=== PATIENT | male | born 1980 ===

== ENCOUNTER 2016-05-05 12:05 | Emergency (ER) | payer OTHER ==
[2016-05-05 12:25] VITALS: BP 140/81
[2016-05-05] MEDS ORDERED: MOTRIN PO ONE (15:00)
[2016-05-05] MEDS ORDERED: DECADRON IM ONE (15:00)
--- NOTE | 2016-05-05 15:00 | Emergency Department Report ---
HPI - General Chief Complaint: Upper Respiratory Infection Time Seen by Provider: 05/05/16 14:07 - HPI HPI: Patient here reporting cold symptoms to include cough, nasal congestion, headache and chills. He reported that his symptoms is getting worse over the last 2 days but he's been coughing since for a week and a half.Pt said he tried to take NyQuil and TheraFlu but it did not help. Denies any nausea or vomiting. Denies any diarrhea or abdominal pain. She denies any medical problems and he said he does not take any medication. ED Past Medical Hx - Past Medical History Previous Medical History?: No - Surgical History Past Surgical History?: No - Family History Family history: no significant - Social History Smoking Status: Never Smoker Substance Use Type: None - Medications Home Medications: Home Medications Medication Instructions Recorded Confirmed Last Taken Type ALBUTEROL Inhaler [ProAir HFA 2 puff IH QID PRN #1 inhalation 05/05/16 Unknown Rx Inhaler] Amoxicillin/K Clav Tab [Augmentin 1 tab PO Q12HR #20 tab 05/05/16 Unknown Rx 875 mg] guaiFENesin/CODEINE [Robitussin AC] 10 ml PO BID PRN #100 ml 05/05/16 Unknown Rx predniSONE [Deltasone] 50 mg PO QDAY #5 tab 05/05/16 Unknown Rx ED Review of Systems ROS: Stated complaint: CHEST PAIN,SOB Other details as noted in HPI Comment: All other systems reviewed and negative Constitutional: chills Eyes: denies: eye discharge ENT: congestion. denies: ear pain, throat pain Respiratory: cough. denies: shortness of breath, SOB with exertion, SOB at rest , stridor, wheezing Cardiovascular: denies: chest pain, palpitations, edema, syncope Gastrointestinal: denies: abdominal pain, nausea, vomiting, diarrhea, constipation Musculoskeletal: denies: back pain, arthralgia Skin: denies: rash Neurological: headache. denies: weakness, numbness, paresthesias, confusion, abnormal gait Physical Exam - Physical Exam Vital Signs: Vital Signs 05/05/16 12:22 Temperature 100.9 F H Pulse Rate 106 H Respiratory 20 Rate Blood Pressure 140/81 O2 Sat by Pulse 95 Oximetry Vital Signs 05/05/16 05/05/16 12:22 15:54 Temperature 100.9 F H Pulse Rate 106 H 98 H Respiratory 20 18 Rate Blood Pressure 140/81 O2 Sat by Pulse 95 98 Oximetry General: This is a 35-year-old male well-nourished well-developed in no acute distress. Physical Exam: Head: Normocephalic atraumatic Mouth: Moist, no pharyngeal exudate or erythema. Uvula is midline and oral airway is patent. No gingival enlargement or dental tenderness. No facial swelling. No peritonsillar abscesses. Neck: Supple, no C-spine tenderness, no tracheal deviation. Nontender to palpate. no adenopathy Ears: Bilateral TMs congested without erythema .bilateral EAC without any redness swelling or drainage Eyes: Bilateral pupils equal and reactive to light, bilateral EOM intact. Bilateral sclera and conjunctiva without injection. Normal accommodation Nose: Mucosa moist, positive congestion no erythema. Positive clear drainage. maxillary and frontal sinus non-tender to palpate. Lungs: Scattered wheezing throughout lung gutierrez .no rhonchi or rales. Normal work of breathing . Dry cough extremity; No CCE. +2 pulses. No neurovascular compromise Cardiovascular: S1-S2, mild tachycardia at 106 ,regular rhythm. No murmurs. Skin: clean Dry and intact no rash no lesions Psych: Normal mood and behavior ED Course Vital Signs 05/05/16 12:22 Temperature 100.9 F H Pulse Rate 106 H Respiratory 20 Rate Blood Pressure 140/81 O2 Sat by Pulse 95 Oximetry Vital Signs 05/05/16 05/05/16 05/05/16 12:22 15:54 16:01 Temperature 100.9 F H Pulse Rate 106 H 98 H Pulse Rate [ 90 Anterior Throughout] Respiratory 20 18 Rate Respiratory 18 Rate [Anterior Throughout] Blood Pressure 140/81 O2 Sat by Pulse 95 98 Oximetry 05/05/16 16:02 Temperature Pulse Rate Pulse Rate [ 92 H Anterior Throughout] Respiratory Rate Respiratory 16 Rate [Anterior Throughout] Blood Pressure O2 Sat by Pulse Oximetry - Reevaluation(s) Reevaluation #1: 05/05/16 15:59 Patient given DuoNeb times one treatment in emergency room. He was also given Decadron 10 mg IM and Motrin 800 mg by mouth. Upon reevaluation, patient lungs sounds clear. ED Medical Decision Making - Radiology Data Radiology results: report reviewed Chest x-ray revealed no acute cardiopulmonary processes - Medical Decision Making ED course: I discussed the patient that he has acute bronchitis and will be treated with antibiotic, steroids and inhaler. Patient given Motrin 800 mg by mouth, Decadron 10 mg IM and DuoNeb times one nebulizer in emergency room. Thus with him that he will need to follow up with his primary care physician and if he does not have one he can follow up with Dr. Og who is on-call internal medicine doctor. Patient discharged home with prescription for prednisone, Augmentin, albuterol and guaifenesin with codeine Critical care attestation.: If time is entered above; I have spent that time in minutes in the direct care of this critically ill patient, excluding procedure time. ED Disposition Clinical Impression: Cough, Fever in adult Acute bronchitis Qualifiers: Bronchitis organism: unspecified organism Qualified Code(s): J20.9 - Acute bronchitis, unspecified Disposition: DISCHARGED TO HOME OR SELFCARE Is pt being admited?: No Does the pt Need Aspirin: No Condition: Stable Instructions: Fever in Adults (ED), Acute Bronchitis (ED), Acute Cough (ED) Additional Instructions: increase her fluid intake Take Motrin and/or Tylenol for fever Please do not drive or operate any heavy machinery while taking cough medicine. Prescriptions: ALBUTEROL Inhaler [ProAir HFA Inhaler] 2 puff IH QID PRN #1 inhalation PRN Reason: Wheezing Amoxicillin/K Clav Tab [Augmentin 875 mg] 1 tab PO Q12HR #20 tab guaiFENesin/CODEINE [Robitussin AC] 10 ml PO BID PRN #100 ml PRN Reason: Cough predniSONE [Deltasone] 50 mg PO QDAY #5 tab Referrals: PRIMARY CARE,MD [Primary Care Provider] - 3-5 Days Forms: Accompanied Note, Work/School Release Form(ED)
--- NOTE | 2016-05-05 15:23 | XRay Report ---
Chest 2 views: History: Cough and fever. Findings: Normal cardiomediastinal silhouette. Trachea is midline. No consolidation, pneumothorax or pleural effusion. Impression: No acute cardiopulmonary findings.
[2016-05-05] MEDS ORDERED: DUONEB 0.5 MG-3 MG/3 ML SOLN IH ONE ×2 (15:52→15:53)
== END 2016-05-05 16:15 | disposition home or self-care (01) ==
LOC: ED 12:05
DX: J20.9 Acute bronchitis, unspecified (principal)
CPT/HCPCS: 71020; 94640; 96372; 99283; J1100